=== PATIENT | female | born 1970 | race Caucasian/White ===

== ENCOUNTER → 2017-11-23 10:20 | Outpatient (POV) | payer MEDICAID, SELFPAY ==
[2017-11-23 10:31] VITALS: BP 139/78; PULSE 128; RESP 20; O2SAT 97; BMI 32.5
--- NOTE | 2017-11-23 11:35 | HMH.PAINSOAP ---
[facility] Pain Management SOAP Note Subjective:: Patient is a 46-year-old white female who presents today to discuss medication and her latest bilateral SI joint injections. Patient is very tearful today. Patient states she is under a large amount of stress that she is losing her home and she is in the process of moving. Patient has failed a drug screen in the past she states that this was due to her daughter switching out her medications. She would like to discuss narcotic therapy again. Patient states that after her bilateral SI joint injection she had 30 days of 60% relief. She states today her pain is in her hips, low back, neck. Patient has tried occipital blocks in the past. Patient states she is also having kidney problems. She is being followed by nephrology in [place]. Patient was client of [place] [facility] prior to coming to our practice. Patient states that all movement really increases her pain and she rates her pain a 9 out of 10 today. Patient states there is no real relieving factors she states she cannot take any anti-inflammatories due to her kidneys. ROS General: no recent weight change, no fever Cardiovascular/Peripheral Vascular: No chest pain, No palpitations, no edema, no shortness of breath. Gastrointestinal: no incontinence Genitourinary: no incontinence Musculoskeletal: Neck pain, hip pain, back pain Psychiatric: normal mood/ affect Neurological: [denies weakness in extremities], intermittent balance issues Objective:: Physical Exam General: Alert and oriented x3, no acute distress, pleasant and cooperative, [on room air] Lungs: Resps E/U, Symmetrical chest expansion Musculoskeletal: Flexion and extension of lumbar and cervical spine somewhat guarded secondary to pain, deep tendon reflexes normal, strength in upper and lower extremities [5/5], normal gait noted Neurological: speech clear, library manager equal, no gross sensory deficits Assessment:: Sacroiliitis, degenerative disc disease lumbar spine, cervical pain Plan:: I discussed with the patient that we would be unable to continue her narcotic therapy or ever restart her narcotic therapy due to the urine drug screen that we have on file. Patient is very tearful and upset I offered multiple injection options she states that maybe she will try a lumbar epidural steroid injection. I also offered her gabapentin 300 mg 1 p.o. 3 times daily. Patient left the office with out scheduling her injection for her lumbar spine and without a prescription. This note was dictated using voice recognition software and may contain omissions or errors
--- NOTE | 2017-11-23 11:38 | P.CONS_ITS ---
[facility] Pain Management SOAP Note Subjective:: Patient is a 46-year-old white female who presents today to discuss medication and her latest bilateral SI joint injections. Patient is very tearful today. Patient states she is under a large amount of stress that she is losing her home and she is in the process of moving. Patient has failed a drug screen in the past she states that this was due to her daughter switching out her medications. She would like to discuss narcotic therapy again. Patient states that after her bilateral SI joint injection she had 30 days of 60% relief. She states today her pain is in her hips, low back, neck. Patient has tried occipital blocks in the past. Patient states she is also having kidney problems. She is being followed by nephrology in [place]. Patient was client of [place] [facility] prior to coming to our practice. Patient states that all movement really increases her pain and she rates her pain a 9 out of 10 today. Patient states there is no real relieving factors she states she cannot take any anti-inflammatories due to her kidneys. ROS General: no recent weight change, no fever Cardiovascular/Peripheral Vascular: No chest pain, No palpitations, no edema, no shortness of breath. Gastrointestinal: no incontinence Genitourinary: no incontinence Musculoskeletal: Neck pain, hip pain, back pain Psychiatric: normal mood/ affect Neurological: [denies weakness in extremities], intermittent balance issues Objective:: Physical Exam General: Alert and oriented x3, no acute distress, pleasant and cooperative, [ on room air] Lungs: Resps E/U, Symmetrical chest expansion Musculoskeletal: Flexion and extension of lumbar and cervical spine somewhat guarded secondary to pain, deep tendon reflexes normal, strength in upper and lower extremities [5/5], normal gait noted Neurological: speech clear, nuclear criticality safety engineer equal, no gross sensory deficits Assessment:: Sacroiliitis, degenerative disc disease lumbar spine, cervical pain Plan:: I discussed with the patient that we would be unable to continue her narcotic therapy or ever restart her narcotic therapy due to the urine drug screen that we have on file. Patient is very tearful and upset I offered multiple injection options she states that maybe she will try a lumbar epidural steroid injection. I also offered her gabapentin 300 mg 1 p.o. 3 times daily. Patient left the office with out scheduling her injection for her lumbar spine and without a prescription. This note was dictated using voice recognition software and may contain omissions or errors
--- NOTE | 2017-12-04 14:03 | PC.PHONENOTE ---
called in Rx for Gabapentin 300mg TID with 1 refill to [facility] in [place].
== END ==
PROVIDERS: Family Provider Physician Assistant; PCP Physician Assistant; Visit Provider Clinical Nurse Specialist Family Health
DX: M54.16 Radiculopathy, lumbar region (principal)
CPT/HCPCS: 99212

== ENCOUNTER → 2017-12-24 16:12 | Outpatient (REF) | payer MEDICAID, SELFPAY ==
[2017-12-24 17:59] LABS: Basophils % 0.5 % (0.1-2.0); Eosinophils # 0.2 K/mm3 (0.0-0.4); Hematocrit 36.2 % (37.0-47.0); Hemoglobin 11.5 g/dL (12.2-16.2); Lymphocytes # 2.1 K/mm3 (0.7-4.5); Lymphocytes % 25.1 K/mm3 (10-50); Mean Corpuscular HGB Conc 31.9 g/dL (31.8-35.4); Mean Corpuscular Hemoglobin 29.6 pg (27.0-31.2); Mean Corpuscular Volume 92.9 fl (81-99); Monocytes # 0.4 K/mm3 (0.1-1.0); Monocytes % 5.1 % (1.7-9.3); Neutrophils # 5.5 K/mm3 (1.8-7.8); Neutrophils % 66.4 % (37.0-80.0); Platelet Count 307 K/mm3 (142-424); Red Blood Count 3.89 M/mm3 (4.20-5.40); Red Cell Distribution Width 13.7 % (11.5-17.5); White Blood Count 8.2 K/mm3 (4.8-10.8)
[2017-12-24 18:40] LABS: Alanine Aminotransferase 16 U/L (12-78); Albumin Level 2.9 gm/dL (3.4-5.0); Albumin/Globulin Ratio 0.9 (1.1-1.8); Alkaline Phosphatase 73 U/L (46-116); Anion Gap 13.5 mEq/L (5-15); Aspartate Amino Transferase 9 U/L (15-37); Bilirubin,Total 0.1 mg/dL (0.2-1.0); Blood Urea Nitrogen 20 mg/dL (7-18); Calcium 8.2 mg/dL (8.5-10.1); Carbon Dioxide 23 mmol/L (21.0-32.0); Chloride 110 mmol/L (98-107); Chol/HDL Ratio 4.6 (1-3.5); Cholesterol 260 mg/dL (140-200); Creatinine,Serum 1.52 mg/dL (0.55-1.02); Estimated Glomerular Filt Rate 36 ml/min (>60); GFR (African American) 44 ML/MIN (>60); Globulin 3.2 gm/dl (1.3-3.2); Glucose 99 mg/dL (74-106); HDL Cholesterol 56 mg/dL (29-89); LDL Cholesterol 159 mg/dL (0-130); Potassium 4.5 mmoL/L (3.5-5.1); Sodium 142 mmol/L (136-145); T4 (Thyroxine) 13.1 ug/dl (4.7-13.3); Thyroid Stimulating Hormone 0.03 uIU/ml (0.358-3.740); Total Protein,Serum 6.1 gm/dL (6.4-8.2); Triglycerides 226 mg/dL (30-200); VLDL Cholesterol 45 mg/dL (0-40)
[2017-12-26 18:36] LABS: Vitamin D 25 Hydroxy 14.3 ng/mL (30.0-100.0)
== END ==
LOC: LAB 16:12
PROVIDERS: Visit Provider Physician Assistant
DX: C73 Malignant neoplasm of thyroid gland (principal)
CPT/HCPCS: 80053; 80061; 82652; 84436; 84443; 85025

== ENCOUNTER 2017-12-30 13:56 | Day surgery (SDC) | payer MEDICAID, SELFPAY ==
[2017-12-30 14:24] VITALS: BP 146/86; PULSE 96; RESP 18; TEMP 36.4; O2SAT 95; BMI 31.9
[2017-12-30 14:59] VITALS: BP 124/71; PULSE 90; RESP 18
--- NOTE | 2017-12-30 15:01 | HMH.PMPROC ---
- Procedure Date: 12/30/17 Time: 15:01 Anesthesiologist:: Mike Hidalgo MD Complications:: None Pre-procedure Diagnosis:: Degenerative disc disease of lumbar spine with lumbar radiculopathy symptoms Post-procedure Diagnosis:: Same Indications for Procedure:: This patient is a pleasant 47-year-old white female who we are treating for low back pain with lumbar radiculopathy symptoms. This patient failed a drug screen in the past and we are not writing any oral narcotics. We will do a lumbar epidural steroid injection today to see if this will help with some of her pain symptoms. Procedure Details:: Lumbar epidural steroid injection under fluoroscopy Informed consent was obtained and the risk and benefits of the procedure was explained to the patient. The patient was taken to the procedure room. The patient was placed prone on the procedure table. The patient was prepped and draped in sterile fashion. C-arm fluoroscopy was used to view the lumbar spine. Skin and subcutaneous tissues were anesthetized using lidocaine. I placed an 18-gauge epidural needle and advanced into the L4-L5 interspace using fluoroscopic guidance and [id number] to air. After confirmation of needle placement in the epidural space with dye I injected 2 mL of lidocaine 1.5% with Depo-Medrol 80 mg. Patient tolerated the procedure well with no complications. Plan and Disposition:: We will follow-up with this patient in 2 weeks. We will reevaluate her symptoms at that time.
[2017-12-30 15:04] VITALS: BP 133/78; PULSE 75; RESP 18
--- NOTE | 2017-12-30 15:07 | P.PCN_ITS ---
- Procedure Date: 12/30/17 Time: 15:01 Anesthesiologist:: Mike Hidalgo MD Complications:: None Pre-procedure Diagnosis:: Degenerative disc disease of lumbar spine with lumbar radiculopathy symptoms Post-procedure Diagnosis:: Same Indications for Procedure:: This patient is a pleasant 47-year-old white female who we are treating for low back pain with lumbar radiculopathy symptoms. This patient failed a drug screen in the past and we are not writing any oral narcotics. We will do a lumbar epidural steroid injection today to see if this will help with some of her pain symptoms. Procedure Details:: Lumbar epidural steroid injection under fluoroscopy Informed consent was obtained and the risk and benefits of the procedure was explained to the patient. The patient was taken to the procedure room. The patient was placed prone on the procedure table. The patient was prepped and draped in sterile fashion. C-arm fluoroscopy was used to view the lumbar spine. Skin and subcutaneous tissues were anesthetized using lidocaine. I placed an 18-gauge epidural needle and advanced into the L4-L5 interspace using fluoroscopic guidance and [id number] to air. After confirmation of needle placement in the epidural space with dye I injected 2 mL of lidocaine 1.5 % with Depo-Medrol 80 mg. Patient tolerated the procedure well with no complications. Plan and Disposition:: We will follow-up with this patient in 2 weeks. We will reevaluate her symptoms at that time.
[2017-12-30 15:09] VITALS: BP 144/85; PULSE 87; RESP 18; O2SAT 99
== END 2017-12-30 15:09 | disposition home or self-care (01) ==
LOC: SC.PAINP 13:58
PROVIDERS: Family Provider Physician Assistant; PCP Physician Assistant; Visit Provider Anesthesiology
DX: M51.16 Intervertebral disc disorders with radiculopathy, lumbar region (principal)
CPT/HCPCS: 62323; J1040; Q9966

== ENCOUNTER → 2018-01-26 11:08 | Outpatient (POV) | payer MEDICAID, SELFPAY ==
[2018-01-26 11:49] VITALS: BP 140/73; PULSE 104; RESP 18; TEMP 36.6; O2SAT 98; BMI 31.7
--- NOTE | 2018-01-26 12:09 | XR_ITS ---
XR hip RT 2-3V w/pelvis HISTORY: ITS.REASON: RT HIP PAIN ORDERING PHYSICIAN: Kritsina Tejada PATIENT AGE: 47 years COMPARISON: FINDINGS: No fracture or dislocation is evident. No significant degenerative change. No lytic or blastic change. Unremarkable soft tissues IMPRESSION: Negative right hip
--- NOTE | 2018-01-26 12:15 | HMH.PAINSOAP ---
[facility] Pain Management SOAP Note Subjective:: She is a pleasant 47-year-old white female who presents today after her lumbar epidural steroid injection. Patient states that she is not doing much better today. Patient states that most of her pain today is in her right hip. Patient has not had x-rays of her right hip. Patient states that she feels a popping in her right hip at times. Rates her pain at 8 out of 10 today. Patient had been getting medication from us however due to 2 failed urine drug screens we no longer prescribe for her. Patient is taking gabapentin 300 mg 1 p.o. 3 times daily. She states that this does help her pain. She states that she is having no side effects to this medication. ROS General: no recent weight change, no fever, no sleep disturbances Respiratory: no cough, no shortness of air, no recurring pulmonary infections Cardiovascular/Peripheral Vascular: No chest pain, No palpitations, no edema, no shortness of breath. Gastrointestinal: no incontinence, normal bowel movements reported Genitourinary: no incontinence Musculoskeletal: Back pain, right hip pain Psychiatric: normal mood/ affect Neurological: [denies weakness in extremities], [denies balance issues] Objective:: Physical Exam General: Alert and oriented x3, no acute distress, pleasant and cooperative, [on room air] Lungs: Resps E/U, Symmetrical chest expansion, Eyes: PERRL Musculoskeletal: Flexion and extension of lumbar spine somewhat guarded secondary to pain, deep tendon reflexes normal, strength in upper and lower extremities [5/5], [abnormal gait noted] Neurological: speech clear, composition weatherboard applier equal, no gross sensory deficits Assessment:: Sacroiliitis, degenerative disc disease of the lumbar spine, cervical pain, right hip pain Plan:: Plan a right hip x-ray. After review she may be a candidate to go to orthopedic surgeon. We will follow-up with her after this. We will also start her on gabapentin 400 mg 1 p.o. 3 times daily. Patient denies any side effects to her previous dose of gabapentin. I will follow-up with this patient once x-rays have been reviewed. This note was dictated using voice recognition software and may contain errors or omissions
--- NOTE | 2018-01-26 12:23 | P.CONS_ITS ---
[facility] Pain Management SOAP Note Subjective:: She is a pleasant 47-year-old white female who presents today after her lumbar epidural steroid injection. Patient states that she is not doing much better today. Patient states that most of her pain today is in her right hip. Patient has not had x-rays of her right hip. Patient states that she feels a popping in her right hip at times. Rates her pain at 8 out of 10 today. Patient had been getting medication from us however due to 2 failed urine drug screens we no longer prescribe for her. Patient is taking gabapentin 300 mg 1 p.o. 3 times daily. She states that this does help her pain. She states that she is having no side effects to this medication. ROS General: no recent weight change, no fever, no sleep disturbances Respiratory: no cough, no shortness of air, no recurring pulmonary infections Cardiovascular/Peripheral Vascular: No chest pain, No palpitations, no edema, no shortness of breath. Gastrointestinal: no incontinence, normal bowel movements reported Genitourinary: no incontinence Musculoskeletal: Back pain, right hip pain Psychiatric: normal mood/ affect Neurological: [denies weakness in extremities], [denies balance issues] Objective:: Physical Exam General: Alert and oriented x3, no acute distress, pleasant and cooperative, [ on room air] Lungs: Resps E/U, Symmetrical chest expansion, Eyes: PERRL Musculoskeletal: Flexion and extension of lumbar spine somewhat guarded secondary to pain, deep tendon reflexes normal, strength in upper and lower extremities [5/5], [abnormal gait noted] Neurological: speech clear, cocoa bean roaster equal, no gross sensory deficits Assessment:: Sacroiliitis, degenerative disc disease of the lumbar spine, cervical pain, right hip pain Plan:: Plan a right hip x-ray. After review she may be a candidate to go to orthopedic surgeon. We will follow-up with her after this. We will also start her on gabapentin 400 mg 1 p.o. 3 times daily. Patient denies any side effects to her previous dose of gabapentin. I will follow-up with this patient once x- rays have been reviewed. This note was dictated using voice recognition software and may contain errors or omissions
--- NOTE | 2018-01-26 14:36 | PC.PHONENOTE ---
called in Gabapentin 400 mg TID with 1 refill to pt's pharmacy per provider order
== END ==
PROVIDERS: Family Provider Physician Assistant; PCP Physician Assistant; Visit Provider Clinical Nurse Specialist Family Health
DX: M25.551 Pain in right hip (principal); M46.1 Sacroiliitis, not elsewhere classified
CPT/HCPCS: 73502; 99212

== ENCOUNTER → 2018-03-08 11:33 | Outpatient (POV) | payer MEDICAID, SELFPAY ==
[2018-03-08 12:20] VITALS: BP 144/61; PULSE 88; RESP 18; O2SAT 98; BMI 33.6
--- NOTE | 2018-03-08 12:54 | HMH.PAINSOAP ---
[facility] Pain Management SOAP Note Subjective:: Patient is a pleasant 47-year-old white female who presents today for follow-up with right hip x-ray. Patient's right hip x-ray is negative. Patient states that she feels like there is a popping in her right hip at times. Patient rates her pain 8 out of 10 today. Mostly in her low back radiating down her legs along with her neck radiating down both of her arms. Patient had been getting medication from us however due to 2 failed urine drug screens we no longer prescribe for her. Patient is taking gabapentin 300 mg 1 p.o. 3 times daily. Patient and I discussed neuro stimulation. I believe that this would be beneficial for her. ROS General: no recent weight change, no fever, no sleep disturbances Respiratory: no cough, no shortness of air, no recurring pulmonary infections Cardiovascular/Peripheral Vascular: No chest pain, No palpitations, no edema, no shortness of breath. Gastrointestinal: no incontinence, normal bowel movements reported Genitourinary: no incontinence Musculoskeletal: Back pain, bilateral leg pain, neck pain, bilateral arm pain Psychiatric: normal mood/ affect Neurological: [denies weakness in extremities], [denies balance issues] Objective:: Physical Exam General: Alert and oriented x3, no acute distress, pleasant and cooperative, [on room air] Lungs: Resps E/U, Symmetrical chest expansion, Eyes: PERRL Musculoskeletal: Flexion and extension of lumbar and cervical spine somewhat guarded secondary to pain, deep tendon reflexes normal, strength in upper and lower extremities [5/5], lightly antalgic gait noted, positive Kemps test, positive Spurling's test, positive straight leg raise test bilaterally at 30? Neurological: speech clear, deck steward equal, no gross sensory deficits Assessment:: Sacroiliitis, degenerative disc disease of lumbar spine spine, lumbar radiculopathy, degenerative disc disease of the cervical spine with cervical radiculopathy Plan:: I gave the patient information on the Nuvectra neurostimulator system. I believe that this would be beneficial for both her cervical and lumbar pain symptoms. I believe it would give her long-term relief and increase functionality. We will also order compounded cream to help with her joint pain. Patient is good to take the information home and write down questions that she has. Patient is going to call us to discuss if she would like to move forward with this. Patient's tried and failed physical therapy, anti-inflammatories, medications, injection therapy. I believe this will give her long-term relief of her pain symptoms. Patient and I discussed the trial and implantation process. I will follow-up with this patient after she decides if she would like to proceed. This note was dictated using voice recognition software and may contain errors or omissions
--- NOTE | 2018-03-08 12:57 | P.CONS_ITS ---
[facility] Pain Management SOAP Note Subjective:: Patient is a pleasant 47-year-old white female who presents today for follow-up with right hip x-ray. Patient's right hip x-ray is negative. Patient states that she feels like there is a popping in her right hip at times. Patient rates her pain 8 out of 10 today. Mostly in her low back radiating down her legs along with her neck radiating down both of her arms. Patient had been getting medication from us however due to 2 failed urine drug screens we no longer prescribe for her. Patient is taking gabapentin 300 mg 1 p.o. 3 times daily. Patient and I discussed neuro stimulation. I believe that this would be beneficial for her. ROS General: no recent weight change, no fever, no sleep disturbances Respiratory: no cough, no shortness of air, no recurring pulmonary infections Cardiovascular/Peripheral Vascular: No chest pain, No palpitations, no edema, no shortness of breath. Gastrointestinal: no incontinence, normal bowel movements reported Genitourinary: no incontinence Musculoskeletal: Back pain, bilateral leg pain, neck pain, bilateral arm pain Psychiatric: normal mood/ affect Neurological: [denies weakness in extremities], [denies balance issues] Objective:: Physical Exam General: Alert and oriented x3, no acute distress, pleasant and cooperative, [ on room air] Lungs: Resps E/U, Symmetrical chest expansion, Eyes: PERRL Musculoskeletal: Flexion and extension of lumbar and cervical spine somewhat guarded secondary to pain, deep tendon reflexes normal, strength in upper and lower extremities [5/5], lightly antalgic gait noted, positive Kemps test, positive Spurling's test, positive straight leg raise test bilaterally at 30? Neurological: speech clear, mainframe systems programmer equal, no gross sensory deficits Assessment:: Sacroiliitis, degenerative disc disease of lumbar spine spine, lumbar radiculopathy, degenerative disc disease of the cervical spine with cervical radiculopathy Plan:: I gave the patient information on the Nuvectra neurostimulator system. I believe that this would be beneficial for both her cervical and lumbar pain symptoms. I believe it would give her long-term relief and increase functionality. We will also order compounded cream to help with her joint pain. Patient is good to take the information home and write down questions that she has. Patient is going to call us to discuss if she would like to move forward with this. Patient's tried and failed physical therapy, anti- inflammatories, medications, injection therapy. I believe this will give her long-term relief of her pain symptoms. Patient and I discussed the trial and implantation process. I will follow-up with this patient after she decides if she would like to proceed. This note was dictated using voice recognition software and may contain errors or omissions
--- NOTE | 2018-04-05 11:37 | PC.NURSE ---
GABAPENTIN 400MG TID WITH 2 REFILLS FAXED TO [facility]
== END ==
PROVIDERS: Family Provider Physician Assistant; PCP Physician Assistant; Visit Provider Clinical Nurse Specialist Family Health
DX: M54.12 Radiculopathy, cervical region (principal); M46.1 Sacroiliitis, not elsewhere classified
CPT/HCPCS: 99212

== ENCOUNTER → 2019-03-01 19:34 | Outpatient (CLI) | payer MEDICAID, SELFPAY ==
[2019-03-01 20:29] LABS: Basophils % 0.4 % (0.1-2.0); Eosinophils # 0.2 K/mm3 (0.0-0.4); Eosinophils % 1.5 % (0.1-12.0); Hematocrit 39.1 % (37.0-47.0); Hemoglobin 13.3 g/dL (12.2-16.2); Lymphocytes # 2.4 K/mm3 (0.7-4.5); Lymphocytes % 23.5 % (10-50); Mean Corpuscular HGB Conc 34.1 g/dL (31.8-35.4); Mean Corpuscular Hemoglobin 29.7 pg (27.0-31.2); Mean Corpuscular Volume 87.1 fl (81-99); Mean Platelet Volume 8.1 fl (7.4-10.4); Monocytes # 0.6 K/mm3 (0.1-1.0); Monocytes % 5.8 % (1.7-9.3); Neutrophils # 7.1 K/mm3 (1.8-7.8); Neutrophils % 68.7 % (37.0-80.0); Platelet Count 439 K/mm3 (142-424); Red Blood Count 4.49 M/mm3 (4.20-5.40); Red Cell Distribution Width 13.6 % (11.5-17.5); White Blood Count 10.3 K/mm3 (4.8-10.8)
[2019-03-01 21:37] LABS: Alanine Aminotransferase 29 U/L (12-78); Albumin Level 3.4 gm/dL (3.4-5.0); Albumin/Globulin Ratio 0.9 (1.1-1.8); Alkaline Phosphatase 107 U/L (46-116); Anion Gap 19.6 mEq/L (5-15); Aspartate Amino Transferase 14 U/L (15-37); Bilirubin,Total 0.2 mg/dL (0.2-1.0); Blood Urea Nitrogen 30 mg/dL (7-18); Calcium 8.8 mg/dL (8.5-10.1); Carbon Dioxide 19 mmol/L (21.0-32.0); Chloride 106 mmol/L (98-107); Chol/HDL Ratio 5.4 (1-3.5); Cholesterol 316 mg/dL (140-200); Creatinine,Serum 2.14 mg/dL (0.55-1.02); Estimated Glomerular Filt Rate 24 ml/min (>60); GFR (African American) 30 ML/MIN (>60); Globulin 3.6 gm/dl (1.3-3.2); Glucose 86 mg/dL (74-106); HDL Cholesterol 59 mg/dL (29-89); LDL Cholesterol 205 mg/dL (0-130); Potassium 4.6 mmoL/L (3.5-5.1); Sodium 140 mmol/L (136-145); Thyroid Stimulating Hormone 0.03 uIU/ml (0.358-3.740); Triglycerides 260 mg/dL (30-200); VLDL Cholesterol 52 mg/dL (0-40)
[2019-03-03 08:32] LABS: Vitamin D 25 Hydroxy 27.7 ng/mL (30.0-100.0)
== END ==
PROVIDERS: Visit Provider Physician Assistant
DX: I10 Essential (primary) hypertension (principal); E55.9 Vitamin D deficiency, unspecified
CPT/HCPCS: 80053; 80061; 82652; 84436; 84443; 85025

== ENCOUNTER → 2020-04-25 14:30 | Outpatient (CLI) | payer MEDICAID, SELFPAY ==
[2020-04-25 14:44] LABS: Alanine Aminotransferase 31 U/L (12-78); Albumin/Globulin Ratio 1.3 (1.1-1.8); Alkaline Phosphatase 117 U/L (38-126); Aspartate Amino Transferase 31 U/L (14-36); Bilirubin,Total 0.4 mg/dl (0.2-1.3); Blood Urea Nitrogen 34 mg/dl (7-17); Calcium 9.7 mg/dl (8.4-10.2); Carbon Dioxide 24 mmol/L (22.0-30.0); Chloride 110 mmol/L (98-107); Cholesterol 197 mg/dl (140-200); Estimated Glomerular Filt Rate 25 ml/min (>60); GFR (African American) 30 ML/MIN (>60); Globulin 3.1 g/dL (1.3-3.2); Glucose 105 mg/dl (74-100); HDL Cholesterol 66 mg/dl (40-60); Sodium 144 mmol/L (136-145); Total Protein,Serum 7.1 g/dl (6.3-8.2); Triglycerides 219 mg/dl (30-150); VLDL Cholesterol 44 mg/dL (0-40)
[2020-04-25 14:55] LABS: Direct LDL Cholesterol 95.57 mg/dL (100-129)
[2020-04-25 15:00] LABS: 25-OH Vitamin D, Total 37.1 ng/mL (30-100)
[2020-04-25 15:01] LABS: T4 (Thyroxine) 14.9 ug/dl (5.53-11.0)
[2020-04-25 15:15] LABS: Thyroid Stimulating Hormone < 0.02 uIU/mL (0.465-4.68)
[2020-04-25 15:20] LABS: Basophils # 0.1 K/mm3 (0-0.2); Basophils % 0.9 % (0.1-2.0); Eosinophils # 0.2 K/mm3 (0.0-0.4); Eosinophils % 3.9 % (0.1-12.0); Hematocrit 41.2 % (37.0-47.0); Hemoglobin 13.5 g/dL (12.2-16.2); Lymphocytes # 2.1 K/mm3 (0.7-4.5); Lymphocytes % 37.7 % (10-50); Mean Corpuscular HGB Conc 32.8 g/dL (31.8-35.4); Mean Corpuscular Hemoglobin 30.2 pg (27.0-31.2); Mean Platelet Volume 8.6 fl (7.4-10.4); Monocytes # 0.4 K/mm3 (0.1-1.0); Monocytes % 7.1 % (1.7-9.3); Neutrophils # 2.8 K/mm3 (1.8-7.8); Neutrophils % 50.4 % (37.0-80.0); Platelet Count 311 K/mm3 (142-424); Red Blood Count 4.48 M/mm3 (4.20-5.40); White Blood Count 5.5 K/mm3 (4.8-10.8)
== END ==
PROVIDERS: Visit Provider Physician Assistant
DX: I10 Essential (primary) hypertension (principal); R63.5 Abnormal weight gain
CPT/HCPCS: 80053; 80061; 82306; 84436; 84443; 85025

== ENCOUNTER → 2020-06-18 14:58 | Outpatient (POV) | payer MEDICAID, SELFPAY | PROVIDERS: Visit Provider Internal Medicine Nephrology | DX: Z00.00 Encounter for general adult medical examination without abnormal findings (principal) ==

== ENCOUNTER → 2020-07-16 13:43 | Outpatient (POV) | payer MEDICAID, SELFPAY | PROVIDERS: Visit Provider Internal Medicine Nephrology | DX: Z00.00 Encounter for general adult medical examination without abnormal findings (principal) ==

== ENCOUNTER → 2021-01-03 17:13 | Outpatient (CLI) | payer MEDICAID, SELFPAY ==
[2021-01-03 17:53] LABS: Basophils # 0.1 K/mm3 (0-0.2); Basophils % 0.7 % (0.1-2.0); Eosinophils # 0.1 K/mm3 (0.0-0.4); Eosinophils % 1.6 % (0.1-12.0); Hemoglobin 11.3 g/dL (12.2-16.2); Lymphocytes # 2.4 K/mm3 (0.7-4.5); Lymphocytes % 30.8 % (10-50); Mean Corpuscular HGB Conc 31.4 g/dL (31.8-35.4); Mean Corpuscular Hemoglobin 28.5 pg (27.0-31.2); Mean Corpuscular Volume 90.6 fl (81-99); Mean Platelet Volume 8.9 fl (7.4-10.4); Monocytes # 0.5 K/mm3 (0.1-1.0); Neutrophils # 4.7 K/mm3 (1.8-7.8); Platelet Count 310 K/mm3 (142-424); Red Blood Count 3.98 M/mm3 (4.20-5.40); Red Cell Distribution Width 13.7 % (11.5-17.5); White Blood Count 7.8 K/mm3 (4.8-10.8)
[2021-01-03 17:56] LABS: Alanine Aminotransferase 29 U/L (12-78); Albumin/Globulin Ratio 1.4 (1.1-1.8); Alkaline Phosphatase 91 U/L (38-126); Anion Gap 14.8 mEq/L (5-15); Aspartate Amino Transferase 32 U/L (14-36); Bilirubin,Total 0.2 mg/dl (0.2-1.3); Blood Urea Nitrogen 39 mg/dl (7-17); Calcium 9.9 mg/dl (8.4-10.2); Carbon Dioxide 24 mmol/L (22.0-30.0); Chloride 111 mmol/L (98-107); Chol/HDL Ratio 2.7 (1-3.5); Cholesterol 184 mg/dl (140-200); Estimated Glomerular Filt Rate 23 ml/min (>60); GFR (African American) 28 ML/MIN (>60); Globulin 2.9 g/dL (1.3-3.2); Glucose 103 mg/dl (74-100); HDL Cholesterol 67 mg/dl (40-60); Potassium 4.8 mmoL/L (3.5-5.1); Sodium 145 mmol/L (136-145); Total Protein,Serum 6.9 g/dl (6.3-8.2); Triglycerides 242 mg/dl (30-150); VLDL Cholesterol 48 mg/dL (0-40)
[2021-01-03 18:07] LABS: Direct LDL Cholesterol 75.47 mg/dL (100-129)
[2021-01-03 18:28] LABS: 25-OH Vitamin D, Total 38.8 ng/mL (30-100); Free T4 (Free Thyroxine) 2.36 ng/dl (0.78-2.19)
[2021-01-03 18:42] LABS: Thyroid Stimulating Hormone < 0.02 uIU/mL (0.465-4.68)
== END ==
PROVIDERS: Visit Provider Nurse Practitioner Family
DX: Z68.38 Body mass index [BMI] 38.0-38.9, adult (principal); R53.83 Other fatigue; Z79.899 Other long term (current) drug therapy
CPT/HCPCS: 80053; 80061; 82306; 84439; 84443; 85025

== ENCOUNTER → 2021-06-06 15:52 | Outpatient (POV) | payer MEDICAID, SELFPAY | PROVIDERS: Visit Provider Internal Medicine Nephrology | DX: Z00.00 Encounter for general adult medical examination without abnormal findings (principal) ==

== ENCOUNTER 2022-12-12 16:07 | Emergency (ER) | payer MEDICAID, SELFPAY ==
[2022-12-12 16:08] VITALS: BP 125/76; PULSE 109; RESP 18; TEMP 36.8; O2SAT 95; BMI 37.8
[2022-12-12 16:39] VITALS: BMI 37.8
--- NOTE | 2022-12-12 16:40 | XR_ITS ---
PROCEDURE INFORMATION: Exam: XR Right Hand Exam date and time: 12/12/2022 5:02 PM Age: 52 years old Clinical indication: Hand; Right; Patient HX: Pain @ base of metacarpals, swelling w numbness in phalanges; Additional info: Pain in R hand after breaking up dog fight TECHNIQUE: Imaging protocol: Radiologic exam of the right hand. Views: 1 or 2 views. COMPARISON: No relevant prior studies available. FINDINGS: Bones/joints: Periarticular osteopenia. Focus of calcification adjacent to the base of the 5th metacarpal. Periarticular osteopenia. Scattered foci of subcortical cystic degenerative change. Soft tissues: Normal. IMPRESSION: 1. No findings to suggest acute osseous injury. 2. Periarticular osteopenia.
[2022-12-12 17:00] VITALS: BP 117/68; PULSE 105; O2SAT 97
--- NOTE | 2022-12-12 17:04 | HMH.EDGENADL ---
Discharge Plan Disposition Patient Disposition: Home, Self-Care Prescriptions Prescriptions: New hydrocodone-acetaminophen 5-325 mg tablet 1 tab PO Q6H PRN (Reason: pain) 3 Days Qty: 12 0RF No Action ergocalciferol (vitamin D2) 1,250 mcg (50,000 unit) capsule See Rx Instructions .ROUTE .COMPLEX Qty: 12 1RF Dose Instruction: TAKE 1 CAPSULE BY MOUTH ONE TIME PER WEEK Rx Instructions: TAKE 1 CAPSULE BY MOUTH ONE TIME PER WEEK montelukast [Singulair] 10 mg tablet 10 mg PO HS Qty: 30 2RF jrjyjlabfqnl-Eh-czua-minerals Tablet See Rx Instructions .ROUTE .COMPLEX Qty: 30 11RF Dose Instruction: TAKE 1 TABLET BY MOUTH EVERY MORNING FOR SUPPLEMENT Rx Instructions: TAKE 1 TABLET BY MOUTH EVERY MORNING FOR SUPPLEMENT cyclobenzaprine 10 mg tablet 10 mg PO TID PRN (Reason: muscle spasm) Qty: 60 0RF trazodone 50 mg tablet See Rx Instructions .ROUTE .COMPLEX Qty: 90 0RF Dose Instruction: TAKE 1 TABLET BY MOUTH EVERY DAY Rx Instructions: TAKE 1 TABLET BY MOUTH EVERY DAY venlafaxine 225 mg tablet extended release 24hr See Rx Instructions .ROUTE .COMPLEX Qty: 90 1RF Dose Instruction: TAKE 1 TABLET BY MOUTH EVERY MORNING NEEDED FOR ANXIETY Rx Instructions: TAKE 1 TABLET BY MOUTH EVERY MORNING NEEDED FOR ANXIETY atorvastatin 20 mg tablet See Rx Instructions .ROUTE .COMPLEX Qty: 90 2RF Dose Instruction: TAKE 1 TABLET BY MOUTH EVERY DAY Rx Instructions: TAKE 1 TABLET BY MOUTH EVERY DAY loratadine 10 mg tablet See Rx Instructions .ROUTE .COMPLEX Qty: 30 5RF Dose Instruction: TAKE 1 TABLET BY MOUTH EVERY DAY Rx Instructions: TAKE 1 TABLET BY MOUTH EVERY DAY phentermine [Adipex-P] 37.5 mg capsule 37.5 mg PO DAILY Qty: 30 0RF Rx Instructions: must administer 30 minutes before or 1-2 hours after breakfast colchicine 0.6 mg tablet See Rx Instructions .ROUTE .COMPLEX Qty: 90 2RF Dose Instruction: TAKE 1 TABLET BY MOUTH EVERY DAY Rx Instructions: TAKE 1 TABLET BY MOUTH EVERY DAY lisinopril 10 mg tablet See Rx Instructions .ROUTE .COMPLEX Qty: 90 2RF Dose Instruction: TAKE 1 TABLET BY MOUTH EVERY DAY Rx Instructions: TAKE 1 TABLET BY MOUTH EVERY DAY fluticasone propionate 50 mcg/actuation spray,suspension See Rx Instructions .ROUTE .COMPLEX Qty: 48 0RF Dose Instruction: USE 1 SPRAY IN EACH NOSTRIL EVERY DAY Rx Instructions: USE 1 SPRAY IN EACH NOSTRIL EVERY DAY levothyroxine 200 mcg tablet See Rx Instructions .ROUTE .COMPLEX Qty: 90 0RF Dose Instruction: TAKE 1 TABLET BY MOUTH EVERY DAY FOR THYROID Rx Instructions: TAKE 1 TABLET BY MOUTH EVERY DAY FOR THYROID nifedipine 60 mg tablet extended release See Rx Instructions .ROUTE .COMPLEX Qty: 90 3RF Dose Instruction: TAKE 1 TABLET BY MOUTH EVERY DAY FOR BLOOD PRESSURE Rx Instructions: TAKE 1 TABLET BY MOUTH EVERY DAY FOR BLOOD PRESSURE Referrals Follow up/Referrals: Binh Collins JR, MD [Physician] - See instructions (concern for occult fracture, eval for possible CT or MRI with negative films ) Jillian Villarreal PA [Primary Care Provider] - See instructions Activity Restrictions/Add. Instructions Additional Instructions/Restrictions: Your x-rays were negative today for obvious fracture or dislocation. A Velcro splint was applied. Given the amount of pain and significant swelling that you have had I am concerned that there may be an occult fracture that is not being seen currently on x-ray. Please follow-up with orthopedics for evaluation and possible CT or MRI. Clinical Impressions Clinical Impression: Injury of wrist Discharge ED Provider: Arlene Mims General Adult [facility] General Chief complaint: Extremity Injury, Upper Stated complaint: ao 12/09 right arm pain Time Seen by Provider: 12/12/22 17:04 Mode of Arrival: Ambulatory Source of Infor
[2022-12-12 17:30] VITALS: BP 118/72; PULSE 98; RESP 17; O2SAT 96
[2022-12-12 18:00] VITALS: BP 128/78; PULSE 105; O2SAT 96
[2022-12-12 18:39] VITALS: BP 128/78; PULSE 96; RESP 18; TEMP 36.8; O2SAT 99
== END 2022-12-12 18:44 | disposition home or self-care (01) ==
PROVIDERS: Emergency Provider Student in an Organized Health Care Education/Training Program; PCP Physician Assistant
DX: S69.91XA Unspecified injury of right wrist, hand and finger(s), initial encounter (principal); W54.8XXA Other contact with dog, initial encounter; N18.9 Chronic kidney disease, unspecified; F32.A Depression, unspecified; E78.5 Hyperlipidemia, unspecified; I12.9 Hypertensive chronic kidney disease with stage 1 through stage 4 chronic kidney disease, or unspecified chronic kidney disease; M10.9 Gout, unspecified; D50.9 Iron deficiency anemia, unspecified; E55.9 Vitamin D deficiency, unspecified; Z85.850 Personal history of malignant neoplasm of thyroid
CPT/HCPCS: 73120; 99283; 99284